=== PATIENT | female | born 1995 | race Caucasian/White ===

== ENCOUNTER 2018-05-17 07:51 | Emergency (ER) | payer SELFPAY ==
[~2018-05-17] VITALS: Ht 162.6 cm; Wt 45.4 kg
[2018-05-17] MEDS ORDERED: VISTARIL25 MG PO (08:08)
[2018-05-17] MEDS ORDERED: BUSPIRONE HCL5 MG PO (08:08)
== END 2018-05-17 08:52 | disposition home or self-care (01) ==
LOC: ED 07:51
DX: J02.9 Acute pharyngitis, unspecified (principal)